=== PATIENT | female | born 1975 | race Caucasian/White ===

== ENCOUNTER 2016-09-21 21:39 | Emergency (ER) | payer OTHER ==
[~2016-09-21] VITALS: Ht 160 cm; Wt 56.8 kg
[2016-09-21 21:50] VITALS: BP 122/94; PULSE 94; RESP 15; O2SAT 99
[2016-09-21] MEDS: 0.9% Sodium Chloride 1,000 ML IV SCH (22:00)
[2016-09-21 22:16] LABS: Mean Corpuscular Hemoglobin 31.9 pg (27.0-35.0); Mean Corpuscular Volume 93.3 fL (81-100)
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
[2016-09-21] MEDS ORDERED: AMT25T PO (23:39)
[2016-09-22 00:01] VITALS: BP 94/58; PULSE 105; RESP 15; O2SAT 100
[2016-09-22] MEDS ORDERED: 0.9% Sodium Chloride 1,000 ML IV SCH (00:15)
[2016-09-22] MEDS: 0.9% Sodium Chloride 1,000 ML IV SCH (00:18)
[2016-09-22 03:07] LABS: APPEARANCE,URINE CLOUDY (CLEAR,HAZY); COLOR,URINE RED (YELLOW); OCCULT BLOOD,URINE LARGE (NEGATIVE)
[2016-09-22 03:08] LABS: UROBILINOGEN,URINE NORMAL (NORMAL)
[2016-09-22 06:13] VITALS: BP 118/79; PULSE 83; RESP 16; O2SAT 95
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
[2016-09-22 09:45] VITALS: BP 138/90; PULSE 91; RESP 16; O2SAT 99
[2016-09-22 13:08] VITALS: BP 138/93; PULSE 93; RESP 16; O2SAT 100
== END 2016-09-22 13:13 | disposition home or self-care (01) ==
LOC: SED 21:39
DX: T43.012A Poisoning by tricyclic antidepressants, intentional self-harm, initial encounter (principal); Y93.89 Activity, other specified; Y92.89 Other specified places as the place of occurrence of the external cause; Y99.8 Other external cause status; F10.129 Alcohol abuse with intoxication, unspecified; F43.0 Acute stress reaction; F17.200 Nicotine dependence, unspecified, uncomplicated
CPT/HCPCS: 36415; 70450; 80053; 81001; 81002; 81025; 82075; 84702; 85027; 93005; 96360; 96361; 99285; G0480; J7030